=== PATIENT | female | born 1980 | race Caucasian/White ===

== ENCOUNTER 2018-10-24 14:05 | Emergency (ER) | payer SELFPAY ==
[2018-10-24 14:50] VITALS: TEMP 99
--- NOTE | 2018-10-24 15:20 | RAD ---
EXAM: XR Right Hand Complete, 3 or More Views CLINICAL HISTORY: 37 years old and is Female; PUNCHED A WALL TECHNIQUE: Frontal, lateral and oblique views of the right hand. COMPARISON: No relevant prior studies available. FINDINGS: Limitations: None. Bones/joints: There is an acute nondisplaced fracture of the base of the fifth metacarpal. No dislocation. Soft tissues: Unremarkable. No radiopaque foreign body. IMPRESSION: There is an acute nondisplaced fracture of the base of the fifth metacarpal. Electronically signed by: Marisela Wise MD 10/24/2018 3:18 PM CDT
--- NOTE | 2018-10-24 15:47 | ED.PDOC ---
History of Present Illness - General Chief Complaint: Upper Extremity Injury Stated Complaint: right hand pain Time Seen by Provider: 10/24/18 15:07 Source: patient Exam Limitations: no limitations - History of Present Illness Initial Comments: the patient is 37-year-old female presenting to the emergency room secondary to pain at the base of her fifth metacarpal of her right hand after punching a wall. There is no palpable bony deformity but there is some soft tissue swelling. Alignment of the pinky finger in extension and flexion appears to be good. Sensation appears to be normal. No other injuries. Timing/Duration: 24 hours Severity: moderate Improving Factors: immobilization Worsening Factors: movement Associated Symptoms: denies symptoms Allergies/Adverse Reactions: Allergies NO KNOWN ALLERGY Allergy (Verified 10/24/18 14:44) Home Medications: Ambulatory Orders Levothyroxine Sodium [Synthroid] 175 mcg PO DAILY 10/24/18 Review of Systems - Review of Systems Constitutional: States: no symptoms reported EENTM: States: no symptoms reported Respiratory: States: no symptoms reported Cardiology: States: no symptoms reported Gastrointestinal/Abdominal: States: no symptoms reported Genitourinary: States: no symptoms reported Musculoskeletal: States: see HPI Skin: States: no symptoms reported Neurological: States: no symptoms reported Endocrine: States: no symptoms reported All other Systems: No Change from Baseline Past Medical History (General) - Patient Medical History Hx Seizures: No Hx Stroke: No Hx Asthma: No Hx Diabetes: No Surgical History: cholecystectomy, other - Social History Hx Tobacco Use: No Family Medical History - Family History Mother Family History: Unknown Physical Exam - Physical Exam General Appearance: Alert, Comfortable, No apparent distress Eye Exam: bilateral normal Ears, Nose, Throat: hearing grossly normal Neck: full range of motion, supple Respiratory: no respiratory distress, no accessory muscle use Cardiovascular/Chest: normal peripheral pulses, no edema Peripheral Pulses: radial,right: 2+, radial,left: 2+ Rectal Exam: deferred Extremity: no pedal edema, normal capillary refill, swelling, other - see history of present illness Neurologic: transaction processor II-XII nml as tested, alert, normal mood/affect, oriented x 3 Skin Exam: normal color - mild bruising over the base of the fifth metacarpal Progress - Progress Progress: 10/24/18 15:48 the patient is a 37-year-old female presented to the emergency room secondary to injuring her right hand when she punched a wall. She has a nondisplaced fifth metacarpal fracture of the right. The patient was placed in a splint. She is to keep this in place and adjusted as necessary for comfort for the next 2-3 weeks. ER warnings were given for a significant worsening. Motrin can use for discomfort. Keep routine follow-up with primary care doctor otherwise. Departure - Departure Clinical Impression: Fracture of fifth metacarpal bone Qualifiers: Encounter type: initial encounter Fracture type: closed Metacarpal location: base Fracture alignment: nondisplaced Laterality: right Qualified Code(s): S62.346A - Nondisplaced fracture of base of fifth metacarpal bone, right hand, initial encounter for closed fracture Disposition: Discharge to Home or Self Care Condition: Fair Departure Forms: ED Discharge - Pt. Copy, Patient Portal Self Enrollment Instructions: DI for Fracture Diet: regular diet Activity: no pushing/pulling with affected limb Home Medications: Ambulatory Orders Levothyroxine Sodium [Synthroid] 175 mcg PO DAILY 10/24/18 Additional Instructions: the patient is a 37-year-old female presented to the emergency room secondary to injuring her right hand when she punched a wall. She has a nondisplaced fifth metacarpal fracture of the right. The patient was placed in a splint. She is to keep this in place and adjusted as necessary for comfort for the next 2-3 weeks. ER warnings were given for a significant worsening. Motrin can use for discomfort. Keep routine follow-up with primary care doctor otherwise.
[2018-10-24 15:57] VITALS: BP 120/64; O2SAT 94
== END 2018-10-24 15:55 | disposition home or self-care (01) ==
LOC: ER 14:05
DX: S62.346A Nondisplaced fracture of base of fifth metacarpal bone, right hand, initial encounter for closed fracture (principal); W22.09XA Striking against other stationary object, initial encounter; Y92.9 Unspecified place or not applicable